=== PATIENT | male | born 1995 | race Caucasian/White ===

== ENCOUNTER 2018-05-15 08:08 | Emergency (ER) | payer OTHER ==
[2018-05-15 08:23] VITALS: BP 147/80
--- NOTE | 2018-05-15 08:23 | ED Physician Documentation ---
PD HPI URI - Stated complaint Stated Complaint: COUGH W/BLOOD - Chief complaint Chief Complaint: General - History obtained from History obtained from: Patient - History of Present Illness Timing - onset: How many days ago (few) Timing duration: Days (few) Timing details: Gradual onset, Still present Associated symptoms: Swollen nodes, Productive cough Contributing factors: No: Sick contact, Immunocompromised, COPD / asthma Worsened by: Position (coughing more lying down) Similar symptoms before: Has not had sx before Recently seen: Not recently seen Review of Systems Constitutional: reports: Myalgias. denies: Fever, Chills Throat: reports: Sore throat. denies: Swollen tonsils Cardiac: reports: Chest pain / pressure (with coughing, right anterior) Respiratory: reports: Cough, Hemoptysis (little streaks this morning, along with purulent sputum.) GI: denies: Abdominal Pain, Nausea, Vomiting, Diarrhea : denies: Dysuria, Frequency PD PAST MEDICAL HISTORY - Past Medical History Cardiovascular: None Respiratory: Asthma Neuro: None Endocrine/Autoimmune: None - Present Medications Home Medications: Ambulatory Orders Medication Instructions Recorded Confirmed Albuterol Sulf [Ventolin Hfa 2 - 3 puffs INH Q4HR PRN #1 inhaler 05/15/18 Inhaler] Benzonatate [Tessalon] 100 mg PO TID PRN #25 capsule 05/15/18 Dexamethasone [Decadron] 4 mg PO DAILY #5 tablet 05/15/18 Doxycycline Monohydrate 100 mg PO BID #14 tablet 05/15/18 - Allergies Allergies/Adverse Reactions: Allergies Allergy/AdvReac Type Severity Reaction Status Date / Time No Known Drug Allergies Allergy Verified 05/15/18 08:21 - Family History Family history: denies: CAD, Aortic aneursym, Aortic dissection PD ED PE NORMAL - Vitals Vital signs reviewed: Yes - General General: Alert and oriented X 3, No acute distress, Well developed/nourished - HEENT HEENT: Ears normal, Pharynx benign - Neck Neck: Supple, no meningeal sign, No adenopathy - Cardiac Cardiac: RRR, No murmur - Respiratory Respiratory: Clear bilaterally - Abdomen Abdomen: Soft, Non tender - Back Back: No CVA TTP - Derm Derm: Normal color, Warm and dry, No rash - Extremities Extremities: No tenderness to palpate, Normal ROM s pain, No edema, No calf tenderness / cord - Neuro Neuro: Alert and oriented X 3, No motor deficit, Normal speech Results - Vitals Vitals: Oxygen O2 Source Room air PD MEDICAL DECISION MAKING - Sepsis Event Vital Signs: Oxygen O2 Source Room air Departure - Departure Disposition: 01 Home, Self Care Clinical Impression: Cough with hemoptysis Upper respiratory infection Qualifiers: URI type: unspecified URI Qualified Code(s): J06.9 - Acute upper respiratory infection, unspecified Condition: Stable Record reviewed to determine appropriate education?: Yes Instructions: ED Upper Resp Infec Abx Tx Follow-Up: [facility] [Provider Group] Prescriptions: Albuterol Sulf [Ventolin Hfa Inhaler] 2 - 3 puffs INH Q4HR PRN #1 inhaler PRN Reason: Shortness Of Air/Wheezing Benzonatate [Tessalon] 100 mg PO TID PRN #25 capsule PRN Reason: Cough Dexamethasone [Decadron] 4 mg PO DAILY #5 tablet Doxycycline Monohydrate 100 mg PO BID #14 tablet Comments: Your chest x-ray is clear without any signs of pneumonia. Your symptoms sound like an upper respiratory infection/bronchitis. This commonly is viral though with the coughing of blood that may suggest more irritation that could correlate with bacterial. We will treated with an albuterol inhaler 2-3 puffs 4 times a day for the next 7-10 days as well as Decadron steroid for inflammation and Tessalon for cough. These will help regardless of the cause even if viral. We will add doxycycline antibiotic twice daily for a week for possible bacterial infection. Rest off work for couple of days. Recheck if not improved over the next couple of days. Forms: Activity restrictions Discharge Date/Time: 05/15/18 09:48
[2018-05-15] MEDS ORDERED: BENZONATATE 100 MG CAPSULE PO STA (08:46)
[2018-05-15] MEDS ORDERED: ALBUTEROL NEB 2.5 MG/3 ML INH STA (08:46)
[2018-05-15] MEDS ORDERED: DEXAMETHASONE 10 MG/ML VIAL PO STA (08:46)
--- NOTE | 2018-05-15 09:33 | XRAY Report ---
Reason: chest pain left sided Procedure Date: 05/15/2018 Accession Number: [id number] / [id number] Procedure: XR - Chest 2 View X-Ray CPT Code: 39429 FULL RESULT: EXAM: CHEST RADIOGRAPHY EXAM DATE: 05/15/2018 08:49 AM. CLINICAL HISTORY: Chest pain left-sided. Right-sided chest pain and cough. Coughing up blood. COMPARISON: None. TECHNIQUE: 2 views. FINDINGS: Lungs/Pleura: No focal opacities evident. No pleural effusion. No pneumothorax. Normal volumes. Mediastinum: Heart and mediastinal contours are unremarkable. Other: None. IMPRESSION: 1. No acute disease in the chest. RADIA
== END 2018-05-15 09:48 | disposition home or self-care (01) ==
LOC: ED 08:08
DX: R04.2 Hemoptysis (principal); J06.9 Acute upper respiratory infection, unspecified
CPT/HCPCS: 71046; 94640; 99283; A9270

== ENCOUNTER 2018-07-09 02:09 | Emergency (ER) | payer OTHER ==
[2018-07-09] MEDS ORDERED: IPRATROPIUM/ALBUTEROL 3 ML NEB INH STA (02:22)
--- NOTE | 2018-07-09 02:49 | ED Physician Documentation ---
PD HPI DYSPNEA - Stated complaint Stated Complaint: COUGH,VOMITING - Chief complaint Chief Complaint: Resp - History obtained from History obtained from: Patient - History of Present Illness Timing - onset: Yesterday Timing - details: Gradual onset Pain level now: 0 Improved by: Rest Worsened by: Exertion, Coughing Associated symptoms: Cough, Wheezing. No: Fever, Hemoptysis, Chest pain / discomfort, Bilateral edema, Unilateral edema - Additional information Additional information: T+R last month for similar symptoms, prescribed steroid, albuterol MDI, doxycycline with subsequent resolution of symptoms. Yesterday morning he had gr adual onset of dyspnea, coughing and post-tussive emesis, and symptoms have gradually progressed and thus presents to ED Review of Systems Constitutional: denies: Fever, Chills, Sweats Cardiac: reports: Reviewed and negative Respiratory: reports: Dyspnea, Cough, Wheezing. denies: Hemoptysis GI: reports: Vomiting (post-tussive). denies: Abdominal Pain, Nausea PD PAST MEDICAL HISTORY - Past Medical History Past Medical History: Yes Cardiovascular: None Respiratory: Asthma Neuro: None Endocrine/Autoimmune: None - Past Surgical History Past Surgical History: No - Present Medications Home Medications: Ambulatory Orders Medication Instructions Recorded Confirmed Albuterol Sulf [Ventolin Hfa 2 - 3 puffs INH Q4HR PRN #1 inhaler 05/15/18 Inhaler] Benzonatate [Tessalon] 100 mg PO TID PRN #25 capsule 05/15/18 Dexamethasone [Decadron] 4 mg PO DAILY #5 tablet 05/15/18 Doxycycline Monohydrate 100 mg PO BID #14 tablet 05/15/18 Albuterol Sulf [Ventolin Hfa 2 puffs INH Q4HR PRN #1 inhaler 07/09/18 Inhaler] Benzonatate [Tessalon] 100 mg PO TID PRN #20 capsule 07/09/18 predniSONE [Prednisone] 40 mg PO DAILY #6 tablet 07/09/18 - Allergies Allergies/Adverse Reactions: Allergies Allergy/AdvReac Type Severity Reaction Status Date / Time No Known Drug Allergies Allergy Verified 07/09/18 02:32 - Social History Does the pt smoke?: No Smoking Status: Never smoker Does the pt drink ETOH?: Yes Does the pt have substance abuse?: No - Immunizations Immunizations are current?: Yes - POLST Patient has POLST: No PD ED PE NORMAL - Vitals Vital signs reviewed: Yes - General General: Alert and oriented X 3, No acute distress, Well developed/nourished - HEENT HEENT: Moist mucous membranes - Neck Neck: Supple, no meningeal sign - Cardiac Cardiac: RRR, No murmur - Respiratory Respiratory: No respiratory distress, Other (bilateral expiratory course breath sounds) Results - Vitals Vitals: Oxygen O2 Source Room air - Rads (name of study) chest xray Radiology: Prelim report reviewed, See rad report PD MEDICAL DECISION MAKING - ED course Complexity details: reviewed old records, reviewed results, re-evaluated patient, considered differential, d/w patient ED course: patient reported improvement after duoneb and reauscultation of lungs reveals improved aeration with mild residual bilateral course expiratory breath sounds. Departure - Departure Disposition: 01 Home, Self Care Clinical Impression: Bronchitis with bronchospasm Condition: Good Instructions: ED Bronchitis Asthmatic Follow-Up: [facility] [Provider Group] Prescriptions: Albuterol Sulf [Ventolin Hfa Inhaler] 2 puffs INH Q4HR PRN #1 inhaler PRN Reason: Shortness Of Air/Wheezing Benzonatate [Tessalon] 100 mg PO TID PRN #20 capsule PRN Reason: Cough predniSONE [Prednisone] 40 mg PO DAILY #6 tablet Forms: Activity restrictions Discharge Date/Time: 07/09/18 04:40
--- NOTE | 2018-07-09 04:12 | XRAY Report ---
Reason: cough Procedure Date: 07/09/2018 Accession Number: [id number] / [id number] Procedure: XR - Chest 2 View X-Ray CPT Code: 99096 FULL RESULT: EXAM: CHEST RADIOGRAPHY EXAM DATE: 07/09/2018 03:54 AM. CLINICAL HISTORY: Cough. COMPARISON: CHEST 2 VIEW 05/15/2018 8:49 AM. TECHNIQUE: 2 views. FINDINGS: Lungs/Pleura: No focal opacities evident. No pleural effusion. No pneumothorax. Normal volumes. Mediastinum: Heart and mediastinal contours are unremarkable. Other: None. IMPRESSION: Stable negative 2-view chest radiography. RADIA
[2018-07-09] MEDS ORDERED: predniSONE 20 MG TABLET PO STA (04:26)
[2018-07-09] MEDS ORDERED: BENZONATATE 100 MG CAPSULE PO STA (04:27)
[2018-07-09 04:36] VITALS: BP 145/80
== END 2018-07-09 04:40 | disposition home or self-care (01) ==
LOC: ED 02:09
DX: J20.9 Acute bronchitis, unspecified (principal)
CPT/HCPCS: 71046; 94640; 99283; A9270; J7512

== ENCOUNTER 2019-06-30 03:30 | Emergency (ER) | payer OTHER ==
[2019-06-30 04:11] LABS: BASOPHILS # (AUTO) 0.1 10^3/uL (0.0-0.1); BASOPHILS % (AUTO) 1.4 %; EOSINOPHILS # (AUTO) 0.6 10^3/uL (0.0-0.7); EOSINOPHILS % (AUTO) 5.8 %; HGB - HEMOGLOBIN 15.2 g/dL (14.0-18.0); LYMPHOCYTES # (AUTO) 3.9 10^3/uL (1.5-3.5); LYMPHOCYTES % (AUTO) 39.9 %; MEAN CORPUSCULAR HEMOGLOBIN 30.5 pg (27.0-31.0); MEAN CORPUSCULAR HGB CONC 34.5 g/dL (32.0-36.0); MEAN CORPUSCULAR VOLUME 88.4 fL (80.0-94.0); MEAN PLATELET VOLUME 8.7 fL (7.4-11.4); MONOCYTES # (AUTO) 0.8 10^3/uL (0.0-1.0); MONOCYTES % (AUTO) 7.7 %; NEUTROPHILS # (AUTO) 4.4 10^3/uL (1.5-6.6); NEUTROPHILS % (AUTO) 44.5 %; PLT - PLATELET COUNT 313 10^3/uL (130-450); RED BLOOD COUNT 4.98 10^6/uL (4.70-6.10); RED CELL DISTRIBUTION WIDTH 11.8 % (12.0-15.0); WHITE BLOOD COUNT 9.8 x10^3/uL (4.8-10.8)
[2019-06-30 04:25] LABS: ALBUMIN 4.6 g/dL (3.2-5.5); ALBUMIN/GLOBULIN RATIO 1.6 (1.0-2.2); BILIRUBIN,TOTAL 0.8 mg/dL (0.2-1.0); CALCIUM 9.2 mg/dL (8.5-10.3); CREATININE 0.9 mg/dL (0.6-1.2); TOTAL PROTEIN 7.4 g/dL (6.7-8.2)
--- NOTE | 2019-06-30 04:37 | XRAY Report ---
Reason: chest pain, SOA Procedure Date: 06/30/2019 Accession Number: [id number] / [id number] Procedure: XR - Chest 1 View X-Ray CPT Code: 77305 FULL RESULT: EXAM: CHEST RADIOGRAPHY EXAM DATE: 06/30/2019 04:16 AM. CLINICAL HISTORY: Chest pain, SOA. COMPARISON: CHEST 2 VIEW 07/09/2018 3:54 AM. TECHNIQUE: 1 view. FINDINGS: Lungs/Pleura: No focal opacities evident. No pleural effusion. No pneumothorax. Mediastinum: Within exam limitations, the cardiomediastinal contour is normal. Other: None. IMPRESSION: Normal single view chest. RADIA
--- NOTE | 2019-06-30 06:27 | ED Physician Documentation ---
PD HPI CHEST PAIN - Stated complaint Stated Complaint: CHEST PX SOA - Chief complaint Chief Complaint: Cardiac - History obtained from History obtained from: Patient - History of Present Illness Timing - onset: Enter time (02:00), Today Timing - details: Abrupt onset Pain level max: 6 Pain level now: 0 Quality: Pain Location: Left chest Radiation: Back, Left upper extremity Improved by: Nothing Worsened by: Inspiration Associated symptoms: No: Shortness of air, Diaphoresis, Nausea, Vomiting, Feeling faint / dizzy, General Weakness, Palpitations, Cough Similar symptoms before: Has not had sx before Recently seen: Not recently seen Review of Systems Constitutional: reports: Reviewed and negative Cardiac: reports: Chest pain / pressure. denies: Palpitations, Pedal edema, Calf pain Respiratory: reports: Reviewed and negative GI: reports: Reviewed and negative Musculoskeletal: denies: Extremity swelling PD PAST MEDICAL HISTORY - Past Medical History Past Medical History: Yes Cardiovascular: None Respiratory: Asthma Neuro: None Endocrine/Autoimmune: None - Past Surgical History Past Surgical History: No - Present Medications Home Medications: Ambulatory Orders Medication Instructions Recorded Confirmed Albuterol Sulf [Ventolin Hfa 2 - 3 puffs INH Q4HR PRN #1 inhaler 05/15/18 Inhaler] Benzonatate [Tessalon] 100 mg PO TID PRN #25 capsule 05/15/18 Doxycycline Monohydrate 100 mg PO BID #14 tablet 05/15/18 dexAMETHasone [Decadron] 4 mg PO DAILY #5 tablet 05/15/18 Albuterol Sulf [Ventolin Hfa 2 puffs INH Q4HR PRN #1 inhaler 07/09/18 Inhaler] Benzonatate [Tessalon] 100 mg PO TID PRN #20 capsule 07/09/18 predniSONE [Prednisone] 40 mg PO DAILY #6 tablet 07/09/18 - Allergies Allergies/Adverse Reactions: Allergies Allergy/AdvReac Type Severity Reaction Status Date / Time No Known Drug Allergies Allergy Verified 06/30/19 03:44 - Social History Does the pt smoke?: No Smoking Status: Never smoker Does the pt drink ETOH?: Yes Does the pt have substance abuse?: No - Immunizations Immunizations are current?: Yes - POLST Patient has POLST: No PD ED PE NORMAL - Vitals Vital signs reviewed: Yes - General General: Alert and oriented X 3, No acute distress, Well developed/nourished - HEENT HEENT: Moist mucous membranes - Neck Neck: Supple, no meningeal sign - Cardiac Cardiac: RRR, No murmur, No gallop, No rub - Respiratory Respiratory: No respiratory distress, Clear bilaterally - Abdomen Abdomen: Soft, Non tender - Derm Derm: Normal color, Warm and dry, No rash - Extremities Extremities: No edema Results - Vitals Vitals: Oxygen O2 Source Room air - EKG (time done) No standard instances Rate: Rate (enter#) (99) Rhythm: NSR [place]: LAD Intervals: Normal [place] QRS: Normal Ischemia: Normal ST segments - Labs Labs: Laboratory Tests 06/30/19 06/30/19 04:09 04:09 WBC 9.8 RBC 4.98 Hgb 15.2 Hct 44.0 MCV 88.4 MCH 30.5 MCHC 34.5 RDW 11.8 L Plt Count 313 MPV 8.7 Neut # (Auto) 4.4 Lymph # (Auto) 3.9 H [place] # (Auto) 0.8 Eos # (Auto) 0.6 Baso # (Auto) 0.1 Absolute Nucleated RBC 0.00 Nucleated RBC % 0.0 Sodium 140 Potassium 4.0 Chloride 103 Carbon Dioxide 27 Anion Gap 10.0 BUN 17 Creatinine 0.9 Estimated GFR (MDRD) 106 Glucose 112 H Calcium 9.2 Total Bilirubin 0.8 AST 29 ALT 63 H Alkaline Phosphatase 63 Total Protein 7.4 Albumin 4.6 Globulin 2.8 Albumin/Globulin Ratio 1.6 Lipase 26 - Rads (name of study) chest xray Radiology: Prelim report reviewed, See rad report PD MEDICAL DECISION MAKING - ED course Complexity details: reviewed old records, reviewed results, re-evaluated patient, considered differential, d/w patient Departure - Departure Disposition: Home, Self Care Clinical Impression: Chest pain Qualifiers: Chest pain type: unspecified Qualified Code(s): R07.9 - Chest pain, unspecified Condition: Good Instructions: ED Chest Pain Atypical Unkn Cause Follow-Up: [facility] [Provider Group] Discharge Date/Time: 06/30/19 06:57
[2019-06-30 06:54] VITALS: BP 140/96
== END 2019-06-30 06:57 | disposition home or self-care (01) ==
LOC: ED 03:30
DX: R07.9 Chest pain, unspecified (principal)
CPT/HCPCS: 36415; 71045; 80053; 83690; 85025; 93005; 99284